=== PATIENT | female | born 1935 | race Caucasian/White ===

== ENCOUNTER → 2016-09-19 | Outpatient (CLI) | payer MEDICARE, OTHER ==
[~2016-09-19] MED LIST: ATENOLOL25 MG PO; CRESTOR10 MG PO; EXFORGE HCT 101 EAC2 PO; FLONASE16 G1 BOTH NARES; GABAPENTIN300 MG PO; ONE DAILY TABL1 EACH PO; SINGULAIR10 MG PO; TYLENOL EXTRA500 MG PO
== END | disposition home or self-care (01) ==
LOC: CDC 12:23
DX: R94.31 Abnormal electrocardiogram [ECG] [EKG] (principal); M43.10 Spondylolisthesis, site unspecified; Z88.2 Allergy status to sulfonamides; Z88.5 Allergy status to narcotic agent
CPT/HCPCS: 93000

== ENCOUNTER 2016-09-26 05:36 | Inpatient (IN) | payer OTHER ==
[~2016-09-26] VITALS: Ht 154.9 cm; Wt 79.5 kg
[2016-09-26 05:54] VITALS: BP 186/79
[2016-09-26 14:30] VITALS: BP 134/61
[2016-09-26 16:29] VITALS: BP 133/69
[2016-09-26 20:23] VITALS: BP 126/57
[2016-09-26 23:11] VITALS: BP 123/60
[2016-09-27] VITALS (7 sets, daily range): BP systolic 77–135; BP diastolic 36–65
[2016-09-27 20:24] LABS: BASE EXCESS -4.9 mEq/L (-3 to +3); BICARBONATE 21.1 mEq/L (22-26); CARBOXY HGB 1.9 % (0-5); METHEMOGLOBIN 2.1 % (0-1.5); PCO2 42 mm Hg (35-45); pH 7.31 (7.35-7.45)
[2016-09-27 20:25] LABS: COMMENTS - BLOOD GASES A+C+; DEVICE NRBM; FI02 100 %; O2 FLOW 15 L/MIN; PO2 39 mm Hg (80-100); SITE LR; TOTAL RESP RATE 40 resp/min
[2016-09-27 21:18] LABS: BASOPHIL COUNT 0.1 K/uL (0-0.1); EOSINOPHIL (%) 0 % (0-5); HEMATOCRIT 33.6 % (36.0-46.0); IMMATURE GRANULOCYTE (%) 1.1 % (0.0-0.7); IMMATURE GRANULOCYTE COUNT 0.3 K/uL; INSTRUMENT ABS NEUTROPHIL CT 14.4 K/uL; LYMPHOCYTE COUNT 6.3 K/uL (1.0-2.8); MCHC 31.5 G/DL (30.0-36.0); MCV 101.5 FL (83-99); MEAN PLAT.VOLUME 11.3 uM^3 (9.5-12.4); MONOCYTE (%) 8.7 % (3-12); NEUTROPHIL (%) 62.6 % (45-76); NEUTROPHIL COUNT 14.4 K/uL (1.8-6.4); PLATELET COUNT 305 K/uL (156-360); RBC DIS.WIDTH-CV 12.6 % (11.8-14.6); RBC DIS.WIDTH-SD 46.9 % (39-53); RED BLOOD COUNT 3.31 M/uL (3.80-5.20)
[2016-09-27 21:23] LABS: CHLORIDE 99 mEq/L (99-109); POTASSIUM 4.9 mEq/L (3.7-5.4); SODIUM 131 mEq/L (136-147)
[2016-09-27 21:25] LABS: GLUCOSE 237 mg/dL (70-99)
[2016-09-27 21:26] LABS: ANION GAP 12 MEQ/L (2-14)
[2016-09-27 21:27] LABS: D-DIMER ELISA 0.81 mg/L FEU (< 0.57); PROTHROMBIN TIME 10.6 (9.2-11.2); PTT 23.1 (25-32); TOTAL BILIRUBIN 0.7 mg/dL (0.0-1.0)
[2016-09-27 21:29] LABS: ALKALINE PHOSPHATASE 41 IU/L (3-129); GFR ESTIMATE (CALCULATED) 51 mL/min/
[2016-09-27 21:30] LABS: UREA NITROGEN (BUN) 15 mg/dL (9-23)
[2016-09-27 21:53] LABS: METH RESISTANT S AUREUS PCR NEGATIVE (NEGATIVE)
[2016-09-27 21:55] LABS: PROBE CHECK PASS; SPECIMEN PROCESSING CONTROL PASS
[2016-09-28] VITALS (23 sets, daily range): BP systolic 48–137; BP diastolic 34–77
[2016-09-28 01:04] LABS: TROP-I INTERPRETATION POSITIVE; TROPONIN-I 7.97 ng/mL (0.0-0.30)
[2016-09-28 01:54] LABS: POINT-OF-CARE METER ID UU14174217
[2016-09-28 05:46] LABS: HEMATOCRIT 30.4 % (36.0-46.0); MCH 33.4 PG (29.0-34.0); MCHC 32.9 G/DL (30.0-36.0); MCV 101.7 FL (83-99); MEAN PLAT.VOLUME 12.3 uM^3 (9.5-12.4); PLATELET COUNT 226 K/uL (156-360); RBC DIS.WIDTH-CV 12.8 % (11.8-14.6); RBC DIS.WIDTH-SD 47.8 % (39-53); RED BLOOD COUNT 2.99 M/uL (3.80-5.20); WHITE BLOOD COUNT 17.5 K/uL (4.1-10.2)
[2016-09-28 06:15] LABS: ANION GAP 11 MEQ/L (2-14); CHLORIDE 99 MEQ/L (99-109); GFR ESTIMATE (CALCULATED) 51 mL/min/; GLUCOSE 170 mg/dL (70-99); MAGNESIUM 1.9 mg/dl (1.3-2.7); POTASSIUM 5.2 MEQ/L (3.7-5.4); SAMPLE HEMOLYSIS CHECK 0; SAMPLE ICTERIC CHECK 0; SAMPLE LIPEMIA CHECK 0; SODIUM 131 MEQ/L (136-147); UREA NITROGEN (BUN) 18 mg/dL (9-23)
[2016-09-28 06:20] LABS: TROP-I INTERPRETATION POSITIVE; TROPONIN-I 13.15 ng/mL (0.0-0.30)
[2016-09-28 06:58] LABS: POINT-OF-CARE METER ID UU13113731
[2016-09-28 11:34] LABS: POINT-OF-CARE METER ID UU14174217
[2016-09-28 13:45] LABS: TROP-I INTERPRETATION POSITIVE; TROPONIN-I 23.47 ng/mL (0.0-0.30)
[2016-09-28 13:49] LABS: PROTHROMBIN TIME 10.4 (9.2-11.2); PTT 26.2 (25-32)
[2016-09-28 19:26] LABS: TROP-I INTERPRETATION POSITIVE; TROPONIN-I 21.35 ng/mL (0.0-0.30)
[2016-09-28 20:33] LABS: ANION GAP 9 MEQ/L (2-14); CHLORIDE 97 MEQ/L (99-109); GFR ESTIMATE (CALCULATED) 46 mL/min/; GLUCOSE 141 mg/dL (70-99); SAMPLE HEMOLYSIS CHECK 0; SAMPLE ICTERIC CHECK 0; SAMPLE LIPEMIA CHECK 0; SODIUM 134 MEQ/L (136-147); UREA NITROGEN (BUN) 18 mg/dL (9-23)
[2016-09-28 20:34] LABS: MAGNESIUM 2.3 mg/dl (1.3-2.7); POTASSIUM 3.8 MEQ/L (3.7-5.4)
[2016-09-28 23:54] LABS: POINT-OF-CARE USER ID PHATLC
[2016-09-29] VITALS (21 sets, daily range): BP systolic 98–130; BP diastolic 35–67
[2016-09-29 01:57] LABS: TROP-I INTERPRETATION POSITIVE; TROPONIN-I 19.63 ng/mL (0.0-0.30)
[2016-09-29 06:05] LABS: POINT-OF-CARE METER ID UU13113803; POINT-OF-CARE USER ID PHATLC
[2016-09-29 06:28] LABS: MCH 32.7 PG (29.0-34.0); MCHC 32.7 G/DL (30.0-36.0); MEAN PLAT.VOLUME 11.3 uM^3 (9.5-12.4); PLATELET COUNT 224 K/uL (156-360); RBC DIS.WIDTH-CV 12.5 % (11.8-14.6); RBC DIS.WIDTH-SD 45.1 % (39-53); WHITE BLOOD COUNT 11.5 K/uL (4.1-10.2)
[2016-09-29 06:33] LABS: TROP-I INTERPRETATION POSITIVE; TROPONIN-I 17.35 ng/mL (0.0-0.30)
[2016-09-29 07:02] LABS: ANION GAP 8 MEQ/L (2-14); CHLORIDE 98 MEQ/L (99-109); GFR ESTIMATE (CALCULATED) 46 mL/min/; GLUCOSE 122 mg/dL (70-99); MAGNESIUM 2.2 mg/dl (1.3-2.7); POTASSIUM 3.7 MEQ/L (3.7-5.4); SAMPLE HEMOLYSIS CHECK 0; SAMPLE ICTERIC CHECK 0; SAMPLE LIPEMIA CHECK 0; SODIUM 138 MEQ/L (136-147); UREA NITROGEN (BUN) 18 mg/dL (9-23)
[2016-09-29 13:10] LABS: TROP-I INTERPRETATION POSITIVE; TROPONIN-I 15.71 ng/mL (0.0-0.30)
[2016-09-29 16:57] LABS: HEMATOCRIT 25.1 % (36.0-46.0); MCV 100.8 FL (83-99)
[2016-09-30] VITALS (12 sets, daily range): BP systolic 103–131; BP diastolic 32–60
[2016-09-30 06:28] LABS: HEMATOCRIT 25.3 % (36.0-46.0); MCH 32.9 PG (29.0-34.0); MCHC 33.2 G/DL (30.0-36.0); MCV 99.2 FL (83-99); MEAN PLAT.VOLUME 11.4 uM^3 (9.5-12.4); PLATELET COUNT 232 K/uL (156-360); RBC DIS.WIDTH-CV 12.3 % (11.8-14.6); RBC DIS.WIDTH-SD 44.7 % (39-53); RED BLOOD COUNT 2.55 M/uL (3.80-5.20); WHITE BLOOD COUNT 10.1 K/uL (4.1-10.2)
[2016-09-30 07:02] LABS: ANION GAP 9 MEQ/L (2-14); CHLORIDE 97 MEQ/L (99-109); GFR ESTIMATE (CALCULATED) 51 mL/min/; GLUCOSE 118 mg/dL (70-99); POTASSIUM 3.4 MEQ/L (3.7-5.4); SAMPLE HEMOLYSIS CHECK 0; SAMPLE ICTERIC CHECK 0; SAMPLE LIPEMIA CHECK 0; SODIUM 138 MEQ/L (136-147); UREA NITROGEN (BUN) 21 mg/dL (9-23)
[2016-10-01 04:00] VITALS: BP 131/85
[2016-10-01 06:25] LABS: EOSINOPHIL (%) 1.8 % (0-5); EOSINOPHIL COUNT 0.2 K/uL (0-0.3); HEMATOCRIT 25.4 % (36.0-46.0); IMMATURE GRANULOCYTE (%) 0.9 % (0.0-0.7); IMMATURE GRANULOCYTE COUNT 0.1 K/uL; LYMPHOCYTE COUNT 3.3 K/uL (1.0-2.8); MCH 32.9 PG (29.0-34.0); MCHC 33.1 G/DL (30.0-36.0); MCV 99.6 FL (83-99); MEAN PLAT.VOLUME 11.4 uM^3 (9.5-12.4); MONOCYTE (%) 12.3 % (3-12); MONOCYTE COUNT 1.1 K/uL (0-0.8); NEUTROPHIL (%) 46.1 % (45-76); PLATELET COUNT 275 K/uL (156-360); RBC DIS.WIDTH-CV 12.4 % (11.8-14.6); RBC DIS.WIDTH-SD 45.1 % (39-53); RED BLOOD COUNT 2.55 M/uL (3.80-5.20); WHITE BLOOD COUNT 8.6 K/uL (4.1-10.2)
[2016-10-01 06:46] LABS: ANION GAP 8 MEQ/L (2-14); CHLORIDE 98 MEQ/L (99-109); GFR ESTIMATE (CALCULATED) > 59 mL/min/; GLUCOSE 110 mg/dL (70-99); SAMPLE HEMOLYSIS CHECK 0; SAMPLE ICTERIC CHECK 0; SAMPLE LIPEMIA CHECK 0; SODIUM 136 MEQ/L (136-147); UREA NITROGEN (BUN) 18 mg/dL (9-23)
[2016-10-01 06:47] LABS: POTASSIUM 4.1 MEQ/L (3.7-5.4)
[2016-10-01 07:00] VITALS: BP 108/53
[2016-10-01] MEDS ORDERED: BACLOFEN10 MG PO (08:45)
[2016-10-01] MEDS ORDERED: NORCO 5/3251 TABLET PO (08:45)
[2016-10-01 11:41] VITALS: BP 121/56
[2016-10-01] MEDS ORDERED: FUROSEMIDE40 MG PO (14:29)
[2016-10-01] MEDS ORDERED: TOPROL XL25 MG PO (14:29)
[2016-10-01] MEDS ORDERED: VALSARTAN80 MG PO (14:29)
== END 2016-10-01 15:42 | DRG 459 ==
LOC: 2SOUTH → 4WEST 05:36 → 2SOUTH 05:36 → 3EAST 05:36 → SDC 10:41 → EDSTATUS 10:42 → 2SOUTH 10:45 → 3EAST 13:52 → 4WEST 09-27 20:29 → 4EAST 09-30 19:28
PROVIDERS: Emergency Medicine; Internal Medicine; Internal Medicine Cardiovascular Disease; Internal Medicine Nephrology; Neurological Surgery
DX: M43.16 Spondylolisthesis, lumbar region (principal); M48.06 Spinal stenosis, lumbar region; M54.16 Radiculopathy, lumbar region; J96.01 Acute respiratory failure with hypoxia; J69.0 Pneumonitis due to inhalation of food and vomit; R57.0 Cardiogenic shock; I21.4 Non-ST elevation (NSTEMI) myocardial infarction; J90 Pleural effusion, not elsewhere classified; E87.2 Acidosis; E87.70 Fluid overload, unspecified; E86.1 Hypovolemia; I10 Essential (primary) hypertension; K59.00 Constipation, unspecified; E66.9 Obesity, unspecified; E78.5 Hyperlipidemia, unspecified; Z68.32 Body mass index [BMI] 32.0-32.9, adult; M19.90 Unspecified osteoarthritis, unspecified site
CPT/HCPCS: 36600; 71010; 71275; 72020; 74000; 76000; 80048; 80048 91; 80053; 81003; 82803; 82948; 83605; 83735; 83880; 84100; 84484; 85014; 85018; 85025; 85027; 85379; 85610; 85730; 86900; 86901; 87040; 87641; 93005; 93306; 94002; 94003; 94799; C1713; J0131; J0330; J0690; J1100; J1170; J1815; J1940; J2405; J2543; J3010; J3370; J3475; J3480; J7050; S0020; S0028

== ENCOUNTER 2016-10-05 23:14 | Inpatient (IN) | payer OTHER ==
[~2016-10-05] VITALS: Ht 154.9 cm; Wt 78.0 kg
[~2016-10-05 23:14] MED LIST changes: +BACLOFEN10 MG PO; +FUROSEMIDE40 MG PO; +NORCO 5/3251 TABLET PO; +TOPROL XL25 MG PO; +VALSARTAN80 MG PO
[2016-10-06 00:54] LABS: HEMATOCRIT 30.6 % (36.0-46.0); MCH 31.4 PG (29.0-34.0); MCHC 31.4 G/DL (30.0-36.0); RBC DIS.WIDTH-CV 12.5 % (11.8-14.6); RBC DIS.WIDTH-SD 45.2 % (39-53); RED BLOOD COUNT 3.06 M/uL (3.80-5.20); WHITE BLOOD COUNT 10.1 K/uL (4.1-10.2)
[2016-10-06 00:57] LABS: PLATELET COUNT 392 K/uL (156-360)
[2016-10-06 01:04] LABS: CHLORIDE 104 mEq/L (99-109); SODIUM 137 mEq/L (136-147)
[2016-10-06 01:06] LABS: GLUCOSE 121 mg/dL (70-99)
[2016-10-06 01:07] LABS: ANION GAP 11 MEQ/L (2-14)
[2016-10-06 01:08] LABS: TOTAL BILIRUBIN 0.3 mg/dL (0.0-1.0)
[2016-10-06 01:09] LABS: ALKALINE PHOSPHATASE 61 IU/L (3-129)
[2016-10-06 01:10] LABS: GFR ESTIMATE (CALCULATED) > 59 mL/min/
[2016-10-06 01:11] LABS: UREA NITROGEN (BUN) 21 mg/dL (9-23)
[2016-10-06 01:18] LABS: POTASSIUM 5.1 mEq/L (3.7-5.4); TROPONIN-I 0.65 ng/mL (0.0-0.30)
[2016-10-06 01:19] LABS: TROP-I INTERPRETATION POSITIVE
[2016-10-06] MEDS ORDERED: TOPROL XL25 MG PO (01:27)
[2016-10-06] MEDS ORDERED: FUROSEMIDE40 MG PO (01:27)
[2016-10-06] MEDS ORDERED: VALSARTAN80 MG PO (01:27)
[2016-10-06] MEDS ORDERED: HYDROCODON-ACE1 EAC7 PO (01:28)
[2016-10-06 05:16] LABS: TROPONIN-I 0.63 ng/mL (0.0-0.30)
[2016-10-06 05:17] LABS: TROP-I INTERPRETATION POSITIVE
[2016-10-06 06:09] VITALS: BP 120/56
[2016-10-06 07:52] VITALS: BP 129/61
[2016-10-06 10:36] LABS: TROP-I INTERPRETATION INDETERMINATE; TROPONIN-I 0.55 ng/mL (0.0-0.30)
[2016-10-06 11:55] VITALS: BP 113/48
[2016-10-06 15:26] VITALS: BP 114/53
[2016-10-06 19:41] VITALS: BP 118/57
[2016-10-06 20:22] VITALS: BP 126/61
[2016-10-07] VITALS: BP 109/59
[2016-10-07 04:00] VITALS: BP 114/57
[2016-10-07 07:48] VITALS: BP 124/60
[2016-10-07 11:16] VITALS: BP 118/56
[2016-10-07 15:57] VITALS: BP 129/60
[2016-10-07 17:24] LABS: ANION GAP 10 MEQ/L (2-14); CHLORIDE 97 MEQ/L (99-109); GFR ESTIMATE (CALCULATED) 42 mL/min/; GLUCOSE 135 mg/dL (70-99); POTASSIUM 4.1 MEQ/L (3.7-5.4); SAMPLE HEMOLYSIS CHECK 0; SAMPLE ICTERIC CHECK 0; SAMPLE LIPEMIA CHECK 0; SODIUM 137 MEQ/L (136-147); UREA NITROGEN (BUN) 25 mg/dL (9-23)
[2016-10-07 19:49] VITALS: BP 119/56
[2016-10-08] VITALS: BP 121/56
[2016-10-08 03:32] VITALS: BP 105/56
[2016-10-08 07:39] VITALS: BP 120/57
[2016-10-08 11:10] VITALS: BP 126/58
[2016-10-08] MEDS ORDERED: ASPIR-LOW81 MG PO (12:05)
== END 2016-10-08 13:35 | disposition home health service (06) | DRG 280 ==
LOC: EME → EDBD 23:14 → EDOF 10-06 04:05 → 5SOUTH 10-06 04:05
PROVIDERS: Emergency Medicine; Hospitalist; Internal Medicine
DX: I11.0 Hypertensive heart disease with heart failure (principal); I50.9 Heart failure, unspecified; I21.4 Non-ST elevation (NSTEMI) myocardial infarction; J18.9 Pneumonia, unspecified organism; E78.5 Hyperlipidemia, unspecified; G89.29 Other chronic pain; M54.9 Dorsalgia, unspecified; R20.0 Anesthesia of skin; R55 Syncope and collapse; D53.9 Nutritional anemia, unspecified; I25.2 Old myocardial infarction; Z68.32 Body mass index [BMI] 32.0-32.9, adult; Z98.1 Arthrodesis status; Z88.2 Allergy status to sulfonamides
CPT/HCPCS: 70450; 71010; 80048; 80053; 82607; 82746; 83880; 84484; 85027; 86900; 86901; 93005; 94799; 99281; 99285; J1644; J1940

== ENCOUNTER 2016-10-26 08:39 | Inpatient (IN) | payer OTHER ==
[~2016-10-26] VITALS: Ht 180.3 cm; Wt 76.1 kg
[~2016-10-26 08:39] MED LIST changes: +ASPIR-LOW81 MG PO; +HYDROCODON-ACE1 EAC7 PO
[2016-10-26 09:05] LABS: BASOPHIL COUNT 0.1 K/uL (0-0.1); EOSINOPHIL (%) 0.9 % (0-5); EOSINOPHIL COUNT 0.1 K/uL (0-0.3); HEMATOCRIT 33.7 % (36.0-46.0); IMMATURE GRANULOCYTE (%) 0.5 % (0.0-0.7); IMMATURE GRANULOCYTE COUNT 0.1 K/uL; INSTRUMENT ABS NEUTROPHIL CT 7.1 K/uL; LYMPHOCYTE COUNT 4.6 K/uL (1.0-2.8); MCH 30.2 PG (29.0-34.0); MCHC 31.5 G/DL (30.0-36.0); MEAN PLAT.VOLUME 10.5 uM^3 (9.5-12.4); MONOCYTE (%) 7.2 % (3-12); MONOCYTE COUNT 0.9 K/uL (0-0.8); NEUTROPHIL (%) 55.5 % (45-76); NEUTROPHIL COUNT 7.1 K/uL (1.8-6.4); PLATELET COUNT 432 K/uL (156-360); RBC DIS.WIDTH-CV 12.5 % (11.8-14.6); RBC DIS.WIDTH-SD 43.6 % (39-53); RED BLOOD COUNT 3.51 M/uL (3.80-5.20); WHITE BLOOD COUNT 12.8 K/uL (4.1-10.2)
[2016-10-26 09:14] LABS: CHLORIDE 98 mEq/L (99-109); POTASSIUM 4.5 mEq/L (3.7-5.4); SODIUM 132 mEq/L (136-147)
[2016-10-26 09:15] LABS: GLUCOSE 190 mg/dL (70-99)
[2016-10-26 09:17] LABS: ANION GAP 14 MEQ/L (2-14)
[2016-10-26 09:19] LABS: GFR ESTIMATE (CALCULATED) 56 mL/min/
[2016-10-26 09:20] LABS: UREA NITROGEN (BUN) 11 mg/dL (9-23)
[2016-10-26 09:26] LABS: TROP-I INTERPRETATION NEGATIVE; TROPONIN-I 0.02 ng/mL (0.0-0.30)
[2016-10-26] MEDS ORDERED: ASPIR-LOW81 MG PO (10:50)
[2016-10-26] MEDS ORDERED: VALACYCLOVIR1000 MG PO (10:53)
[2016-10-26 12:25] VITALS: BP 164/73
[2016-10-26 16:10] VITALS: BP 140/63
[2016-10-26 18:31] LABS: ANION GAP 14 MEQ/L (2-14); CHLORIDE 99 MEQ/L (99-109); GFR ESTIMATE (CALCULATED) 56 mL/min/; GLUCOSE 178 mg/dL (70-99); MAGNESIUM 1.7 mg/dl (1.3-2.7); SAMPLE HEMOLYSIS CHECK 0; SAMPLE ICTERIC CHECK 0; SAMPLE LIPEMIA CHECK 0; SODIUM 136 MEQ/L (136-147); UREA NITROGEN (BUN) 10 mg/dL (9-23)
[2016-10-26 20:40] VITALS: BP 142/86
[2016-10-27 01:44] VITALS: BP 133/68
[2016-10-27 04:36] VITALS: BP 131/68
[2016-10-27 04:52] LABS: HEMATOCRIT 26.1 % (36.0-46.0); MCH 30.2 PG (29.0-34.0); MCHC 32.2 G/DL (30.0-36.0); MCV 93.9 FL (83-99); MEAN PLAT.VOLUME 10.5 uM^3 (9.5-12.4); PLATELET COUNT 328 K/uL (156-360); RBC DIS.WIDTH-CV 12.5 % (11.8-14.6); RBC DIS.WIDTH-SD 42.9 % (39-53); RED BLOOD COUNT 2.78 M/uL (3.80-5.20); WHITE BLOOD COUNT 7.6 K/uL (4.1-10.2)
[2016-10-27 04:57] LABS: CHLORIDE 103 mEq/L (99-109); POTASSIUM 3.9 mEq/L (3.7-5.4); SODIUM 138 mEq/L (136-147)
[2016-10-27 05:00] LABS: ANION GAP 10 MEQ/L (2-14)
[2016-10-27 05:01] LABS: TOTAL BILIRUBIN 0.5 mg/dL (0.0-1.0)
[2016-10-27 05:02] LABS: ALKALINE PHOSPHATASE 78 IU/L (3-129)
[2016-10-27 05:03] LABS: GFR ESTIMATE (CALCULATED) > 59 mL/min/
[2016-10-27 05:04] LABS: UREA NITROGEN (BUN) 10 mg/dL (9-23)
[2016-10-27 05:07] LABS: GLUCOSE 117 mg/dL (70-99)
[2016-10-27 06:54] VITALS: BP 145/67
[2016-10-27 11:03] LABS: TROP-I INTERPRETATION NEGATIVE; TROPONIN-I 0.11 ng/mL (0.0-0.30)
[2016-10-27 11:59] VITALS: BP 120/57
[2016-10-27 15:41] VITALS: BP 149/67
[2016-10-27 19:25] VITALS: BP 169/76
[2016-10-28] VITALS (8 sets, daily range): BP systolic 111–148; BP diastolic 52–68
[2016-10-28 06:11] LABS: ANION GAP 8 MEQ/L (2-14); CHLORIDE 101 MEQ/L (99-109); GFR ESTIMATE (CALCULATED) > 59 mL/min/; GLUCOSE 111 mg/dL (70-99); SAMPLE HEMOLYSIS CHECK 0; SAMPLE ICTERIC CHECK 0; SAMPLE LIPEMIA CHECK 0; SODIUM 137 MEQ/L (136-147); UREA NITROGEN (BUN) 11 mg/dL (9-23)
[2016-10-29] VITALS: BP 112/55
[2016-10-29 04:36] VITALS: BP 127/60
[2016-10-29 05:40] LABS: HEMATOCRIT 28.5 % (36.0-46.0); MCH 30.2 PG (29.0-34.0); MCHC 31.6 G/DL (30.0-36.0); MCV 95.6 FL (83-99); MEAN PLAT.VOLUME 10.6 uM^3 (9.5-12.4); PLATELET COUNT 361 K/uL (156-360); RBC DIS.WIDTH-CV 13.1 % (11.8-14.6); RBC DIS.WIDTH-SD 44.6 % (39-53); RED BLOOD COUNT 2.98 M/uL (3.80-5.20); WHITE BLOOD COUNT 7.4 K/uL (4.1-10.2)
[2016-10-29 06:06] LABS: ANION GAP 10 MEQ/L (2-14); CHLORIDE 99 MEQ/L (99-109); POTASSIUM 4.5 MEQ/L (3.7-5.4); SAMPLE HEMOLYSIS CHECK 0; SAMPLE ICTERIC CHECK 0; SAMPLE LIPEMIA CHECK 0; SODIUM 135 MEQ/L (136-147)
[2016-10-29 06:12] LABS: GFR ESTIMATE (CALCULATED) 46 mL/min/; GLUCOSE 127 mg/dL (70-99); UREA NITROGEN (BUN) 19 mg/dL (9-23)
[2016-10-29] MEDS ORDERED: CLOPIDOGREL75 MG PO (07:01)
[2016-10-29] MEDS ORDERED: NITROSTAT0.4 MG SL (07:01)
[2016-10-29] MEDS ORDERED: FURO20I IV (07:02)
[2016-10-29] MEDS ORDERED: LOSARTAN POTASS50 MG PO (07:02)
[2016-10-29 07:39] VITALS: BP 137/69
== END 2016-10-29 07:48 | disposition short-term general hospital (02) | DRG 286 ==
LOC: EME 08:39 → EDOF 10:11 → 4EAST 10:11 → EDOF 10:21 → 2EASTP 12:13 → 4EAST 19:28
PROVIDERS: Emergency Medicine; Hospitalist; Internal Medicine
DX: I50.23 Acute on chronic systolic (congestive) heart failure (principal); J18.9 Pneumonia, unspecified organism; R13.10 Dysphagia, unspecified; B02.9 Zoster without complications; I25.5 Ischemic cardiomyopathy; I11.0 Hypertensive heart disease with heart failure; E78.5 Hyperlipidemia, unspecified; I25.10 Atherosclerotic heart disease of native coronary artery without angina pectoris; I25.2 Old myocardial infarction; Z98.1 Arthrodesis status; Z72.0 Tobacco use; Z79.899 Other long term (current) drug therapy; Z79.82 Long term (current) use of aspirin; Z86.19 Personal history of other infectious and parasitic diseases; Z86.73 Personal history of transient ischemic attack (TIA), and cerebral infarction without residual deficits; I50.1 Left ventricular failure, unspecified
CPT/HCPCS: 71010; 80048; 80048 91; 80053; 83735; 83880; 84484; 85025; 85027; 93005; 99281; 99283; C1769; C1887; J1644; J1940; J2250; J3010